=== PATIENT | male | born 1950 | race Caucasian/White ===

== ENCOUNTER → 2021-03-18 | Outpatient (CLI) | payer MEDICARE, BC ==
--- NOTE | 2021-03-18 14:36 | KCIC ---
EXAM: Chest, single view; left ribs, 3 views. HISTORY: Pain. Fall. COMPARISON: None. FINDINGS: A frontal view of the chest and 3 views of the left ribs are obtained. There is blunting of the left costophrenic angle likely due to basilar pleural thickening or a trace pleural effusion. Th ere is no infiltrate. There is no pneumothorax. The heart is normal in size. No displaced rib fractur e is seen. IMPRESSION: 1. Left basilar pleural thickening or trace pleural effusion. 2. No acute osseous finding. Electronically signed by: Janet Gayle MD (03/18/2021 2:33 PM) [id number]
== END ==
LOC: KCIC 13:20
PROVIDERS: ATTEND Family Medicine
DX: S24.109A Unspecified injury at unspecified level of thoracic spinal cord, initial encounter (principal); S29.9XXA Unspecified injury of thorax, initial encounter; W19.XXXA Unspecified fall, initial encounter; Y93.89 Activity, other specified; Y92.89 Other specified places as the place of occurrence of the external cause; Y99.8 Other external cause status
CPT/HCPCS: 71101; 72072